=== PATIENT | male | born 1985 | race Caucasian/White ===

== ENCOUNTER 2017-02-18 23:37 | Inpatient (IN) | payer SELFPAY ==
[~2017-02-18] VITALS: Ht 185.4 cm; Wt 60.0 kg
[2017-02-19] VITALS (13 sets, daily range): BP systolic 107–155; BP diastolic 62–82; PULSE 76–100; RESP 16–27; TEMP 98.1–99.2; O2SAT 92–98
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
[2017-02-19] MEDS ORDERED: MORPHINE SULFATE 4 MG/ML INJ IV PUSH PRN (00:30)
[2017-02-19] MEDS ORDERED: SODIUM CHLORIDE 0.9% FLUSH 10 ML FLUSH IVF PRN (00:30)
[2017-02-19] MEDS ORDERED: ACETAMINOPHEN 650 MG SUPP RECTAL PRN (00:30)
[2017-02-19] MEDS: ONDANSETRON HCL 4 MG/2 ML VIAL IV PRN ×3 (01:00→13:30)
[2017-02-19] MEDS: NS + KCL 20 MEQ INJ 1,000 ML IV SCH ×3 (01:00→20:35)
[2017-02-19] MEDS: KETOROLAC TROMETHAMINE 30 MG/ML (IVP) VIAL IV PUSH SCH ×2 (03:37→08:32)
[2017-02-19] MEDS: HYDROmorphone HCL PF 1 MG/ML VIAL IV PRN ×5 (03:38→21:43)
[2017-02-19 04:43] LABS: MRSA PCR NEGATIVE (NEGATIVE); STAPH AUREUS PCR NEGATIVE (NEGATIVE)
[2017-02-19] MEDS ORDERED: MAGNESIUM OXIDE 400 MG TAB PO PRN (07:15)
[2017-02-19] MEDS ORDERED: POTASSIUM PHOSPHATE MONOBASIC 500 MG TAB PO PRN (07:15)
[2017-02-19] MEDS ORDERED: MAGNESIUM SULFATE INJ 4 GM in SODIUM CHLORIDE 0.9% INJ 92 ML IV PRN (07:15)
[2017-02-19] MEDS ORDERED: POTASSIUM CHLOR 20 MEQ PREMIX 100 ML IV PRN ×2 (07:15)
[2017-02-19] MEDS ORDERED: RESP: ALBUTEROL 2.5 MG/IPRATROPIUM 0.5 MG NEB (PRN) INH (07:15)
[2017-02-19] MEDS ORDERED: MAGNESIUM SULFATE INJ 2 GM in SODIUM CHLORIDE 0.9% INJ 96 ML IV PRN (07:15)
[2017-02-19] MEDS ORDERED: MISCELLANEOUS NURSING INFORMATION XX SCH (07:15)
[2017-02-19] MEDS ORDERED: POTASSIUM CHLORIDE 25 MEQ EFFERVESCENT TAB PO PRN (07:15)
[2017-02-19] MEDS ORDERED: CHLORHEXIDINE GLUCONATE 2 % 1 PACK (2 CLOTHS) TOP PRN (07:15)
[2017-02-19] MEDS ORDERED: ENALAPRILAT 1.25 MG/ML VIAL IV PRN (07:15)
[2017-02-19] MEDS ORDERED: POTASSIUM CHLOR 40 MEQ PREMIX 100 ML IV PRN ×2 (07:15)
[2017-02-19] MEDS ORDERED: POTASSIUM PHOSPHATE INJ 30 MMOL in SODIUM CHLOR 0.9% 250 ML INJ 250 ML IV PRN (07:15)
[2017-02-19] MEDS ORDERED: SODIUM PHOSPHATE INJ 30 MMOL in SODIUM CHLOR 0.9% 250 ML INJ 240 ML IV PRN (07:15)
[2017-02-19] MEDS ORDERED: SODIUM CHLORIDE 0.9% FLUSH 10 ML FLUSH IV FLUSH PRN (07:15)
[2017-02-19] MEDS ORDERED: POTASSIUM PHOSPHATE MONOBASIC 500 MG TAB PO/TUBE PRN (07:15)
[2017-02-19] MEDS ORDERED: SODIUM CHLOR 0.9% 1000 ML INJ 1,000 ML IV SCH (08:00)
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
[2017-02-19] MEDS: DOCUSATE SODIUM 100 MG CAP PO SCH ×2 (08:32→20:36)
[2017-02-19] MEDS: PANTOPRAZOLE SODIUM 40 MG VIAL IVP SCH (08:32)
[2017-02-19] MEDS: SODIUM CHLORIDE 0.9% FLUSH 10 ML FLUSH IV FLUSH SCH ×2 (08:33→20:35)
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
[2017-02-19 11:33] LABS: AUTOMATED NEUTROPHIL # 11.1 TH/MM3 (1.8-7.7); BASOPHIL % 0.2 % (0.0-2.0); HEMATOCRIT 43.4 % (39.0-51.0); HEMO FLAGS DIFF FINAL; LYMPH % 8.6 % (9.0-44.0); LYMPHOCYTE # 1.1 TH/MM3 (1.0-4.8); MEAN CELL VOLUME 91.4 FL (80.0-100.0); MEAN CORPUSCULAR HEMOGLOBIN 32.6 PG (27.0-34.0); MEAN CORPUSCULAR HGB CONC 35.7 % (32.0-36.0); MONO % 6.4 % (0.0-8.0); NEUT % 84.8 % (16.0-70.0); PLATELET COUNT 343 TH/MM3 (150-450); RED BLOOD COUNT 4.74 MIL/MM3 (4.50-5.90); RED CELL DISTRIBUTION WIDTH 14.3 % (11.6-17.2); WHITE BLOOD COUNT 13.1 TH/MM3 (4.0-11.0)
[2017-02-19] MEDS: RESP: ALBUTEROL 2.5 MG/IPRATROPIUM 0.5 MG NEB (SCH) INH ×3 (11:47→21:16)
[2017-02-19] MEDS ORDERED: PROPOFOL 200 MG/20 ML AMP IV ONE (12:00)
[2017-02-19 12:14] LABS: ANION GAP 10 MEQ/L (5-15); AST (GOT) 31 U/L (15-37); BICARBONATE 23.3 MEQ/L (21.0-32.0); BLOOD UREA NITROGEN 11 MG/DL (7-18); CHLORIDE 107 MEQ/L (98-107); GLOMERULAR FILTRATION RATE 95 ML/MIN (>89); POTASSIUM 4.2 MEQ/L (3.5-5.1); SODIUM (NA) 140 MEQ/L (136-145)
[2017-02-19 12:17] LABS: ALKALINE PHOSPHATASE 87 U/L (45-117); ALT (GPT) 28 U/L (12-78); TOTAL BILIRUBIN ADULT 0.9 MG/DL (0.2-1.0)
--- NOTE | 2017-02-19 12:38 | RADRPT ---
EXAM DATE/TIME: 02/19/2017 11:11 [facility] COMPARISON: No previous studies available for comparison. INDICATIONS : Trauma, neck pain. RADIATION DOSE: 24 CTDIvol (mGy) MEDICAL HISTORY : None SURGICAL HISTORY : None. ENCOUNTER: Initial ACUITY: 1 day PAIN SCALE: 3/10 LOCATION: neck TECHNIQUE: Volumetric scanning of the cervical spine was performed. Multiplanar reconstructions in the sagittal, coronal and oblique axial planes were performed. Using automated exposure control and adjustment o f the mA and/or kV according to patient size, radiation dose was kept as low as reasonably achievable to obtain optimal diagnostic quality images. FINDINGS: VERTEBRAE: There is fracturing of the C1 ring. There is fracturing of the right lateral aspect of the anterior a rch with approximately 5 mm of separation between the fracture fragments. There are fairly symmetric nondisplaced fractures at the right and left posterior arch regions. The C1-C2 articulation does appe ar aligned. There is also a nondisplaced fracture involving the superior facet of C7 on the left. ALIGNMENT: No evidence of subluxation. C2-C3: The bony spinal canal is normal in size. No evidence of disc bulge or herniation. The neural forami na are bilaterally patent. C3-C4: The bony spinal canal is normal in size. No evidence of disc bulge or herniation. The neural forami na are bilaterally patent. C4-C5: The bony spinal canal is normal in size. No evidence of disc bulge or herniation. The neural forami na are bilaterally patent. C5-C6: The bony spinal canal is normal in size. No evidence of disc bulge or herniation. The neural forami na are bilaterally patent. C6-C7: The bony spinal canal is normal in size. No evidence of disc bulge or herniation. The neural forami na are bilaterally patent. C7-T1: The bony spinal canal is normal in size. No evidence of disc bulge or herniation. The neural forami na are bilaterally patent. CONCLUSION: 1. C1 fracture. 2. Fracturing of the superior facet on the left at C7 without displacement or malalignment of the fac et joint. Amrit Jeong MD on February 19, 2017 at 12:26 Board Certified Radiologist. This report was verified electronically.
--- NOTE | 2017-02-19 15:15 | OTSOAPIP ---
TIME SESSION COMPLETED: AM TREATMENT TIME: 0 MINS. CHART REVIEWED. RECEIVED ORDERS FOR OT CONSULT. PT IS OFF FLOOR FOR ADDITIONAL CERVICAL SPINE TESTING AND PENDING RESULTS. WILL FOLLOW NEXT DAY. Therapist: ANNA ARORYO OT/Amy Signature on file
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
[2017-02-19] MEDS ORDERED: LIDOCAINE 1%/EPINEPHrine 1:100,000 SOLN 50 ML VIAL ONE (17:40)
[2017-02-19] MEDS ORDERED: MIDAZOLAM HCL 2 MG/2 ML VIAL ONE (19:15)
--- NOTE | 2017-02-19 20:08 | RADRPT ---
EXAM DATE/TIME: 02/19/2017 18:51 [facility] COMPARISON: CT CERVICAL SPINE W/O CONTRAST, February 19, 2017, 11:11. INDICATIONS : Evalute cervical stability. Halo placement. MEDICAL HISTORY : None. SURGICAL HISTORY : None. ENCOUNTER: Initial ACUITY: 1 day PAIN SCORE: Non-responsive. LOCATION: Neck. FINDINGS: A single magnified C-arm spot view is a lateral projection of the cervical spine. No fracture appreci ated on this limited single image. Alignment is preserved. CONCLUSION: Limited image as detailed above. Chad Chisholm Jr., MD on February 19, 2017 at 20:06 Board Certified Radiologist. This report was verified electronically.
[2017-02-19] MEDS: MAGNESIUM HYDROXIDE SUSP 30 ML CUP PO SCH (20:36)
--- NOTE | 2017-02-19 20:54 | PD.OP ---
Operative Report Date of Surgery: February 19, 2017 Preoperative Diagnosis: C1 unstable fractures Postoperative Diagnosis: C1 unstable fractures Procedure: Placement of halo brace Anesthesia: general Surgeon: Robert Guillermo Trial Judge(s): JESSICA Operation and Findings: INDICATIONS The patient is a 31-year-old male who presented with severe neck pain. he had unstable fractures of C1. The fractures were unstable. Placement of halo brace was indicated. I have discussed the [id number]-wf-gjht details of the procedure, its indications, alternatives, risks and potential complications with the patient including but not limited to the risk of infection, hemorrhage, paralysis, stroke, heart attack, even vegetative state or even the possibility of . The patient fully understands. All his questions were answered. No guarantees were given. he voiced requesting the procedure and provided informed consent. he has been offered the alternative of not having aggressive management. DETAILS OF THE SURGICAL PROCEDURE The entire procedure was performed with the patient wearing ahard cervical collar and the cervical spine in a neutral position. Whenever movement was indicated, the patient was carefully log-rolled awake. Initially the patient was log-rolled and a vest was placed on the patient's thorax. The vest was tightly secured. Then keeping the head in a neutral position, the bilateral parieto-occipital area was shaved and prepped with Betadine. The bilateral frontal area was prepped with Betadine. 1% lidocaine was used to numb the skull. A halo was brought to the patient's head and carefully secured in a symmetrical position using the torque wrench calibrated at the pressure of 8 pounds per square foot. Once all pins were secured to the patient's skull, four posts were used to connect the halo to the vest and all the connections secured with a torque wrench. The patient's cervical spine was kept in a neutral position. X-ray of the cervical spine was ordered at the end of the procedure. The patient tolerated the procedure well. There were no intraoperative complications. Robert Guillermo MD February 19, 2017 20:54
[2017-02-19] MEDS: oxyCODONE/ACETAMINOPHEN 5 MG/325 MG TAB PO PRN (22:39)
[2017-02-20] VITALS (14 sets, daily range): BP systolic 110–134; BP diastolic 63–80; PULSE 55–85; RESP 16–22; TEMP 98.3–98.9; O2SAT 97–100
[2017-02-20] MEDS: CHLORHEXIDINE GLUCONATE 2 % 1 PACK (2 CLOTHS) TOP SCH (02:52)
[2017-02-20] MEDS: HYDROmorphone HCL PF 1 MG/ML VIAL IV PRN ×4 (02:52→21:05)
[2017-02-20] MEDS: RESP: ALBUTEROL 2.5 MG/IPRATROPIUM 0.5 MG NEB (SCH) INH ×3 (03:52→20:20)
--- NOTE | 2017-02-20 04:46 | RADRPT ---
EXAM DATE/TIME: 02/20/2017 02:38 [facility] COMPARISON: No previous studies available for comparison. INDICATIONS : Short of breath. MEDICAL HISTORY : None. SURGICAL HISTORY : Halo C1 fracture. ENCOUNTER: Initial ACUITY: 1 day PAIN SCORE: 0/10 LOCATION: Bilateral chest FINDINGS: Halo-vest apparatus is noted. The lungs are focally clear. Cardiac contours are satisfactory. CONCLUSION: No acute disease Amrit Mcnulty MD on February 20, 2017 at 4:44 Board Certified Radiologist. This report was verified electronically.
[2017-02-20 05:00] LABS: AUTOMATED NEUTROPHIL # 4.4 TH/MM3 (1.8-7.7); BASOPHIL % 0.3 % (0.0-2.0); EOSINOPHIL # 0.2 TH/MM3 (0-0.4); EOSINOPHIL % 2.4 % (0.0-4.0); HEMO FLAGS DIFF FINAL; LYMPH % 22.6 % (9.0-44.0); LYMPHOCYTE # 1.5 TH/MM3 (1.0-4.8); MEAN CELL VOLUME 91.9 FL (80.0-100.0); MEAN CORPUSCULAR HGB CONC 34.8 % (32.0-36.0); MONO % 8.9 % (0.0-8.0); NEUT % 65.8 % (16.0-70.0); PLATELET COUNT 223 TH/MM3 (150-450); RED BLOOD COUNT 3.92 MIL/MM3 (4.50-5.90); RED CELL DISTRIBUTION WIDTH 14.3 % (11.6-17.2); WHITE BLOOD COUNT 6.6 TH/MM3 (4.0-11.0)
[2017-02-20] MEDS: NS + KCL 20 MEQ INJ 1,000 ML IV SCH ×2 (05:05→16:30)
[2017-02-20] MEDS: SODIUM CHLORIDE 0.9% FLUSH 10 ML FLUSH IV FLUSH SCH ×2 (09:00→19:13)
[2017-02-20] MEDS: ONDANSETRON HCL 4 MG/2 ML VIAL IV PRN (09:01)
[2017-02-20] MEDS: PANTOPRAZOLE SODIUM 40 MG VIAL IVP SCH (09:03)
[2017-02-20] MEDS: DOCUSATE SODIUM 100 MG CAP PO SCH ×2 (09:04→19:13)
[2017-02-20 09:29] LABS: ANION GAP 5 MEQ/L (5-15); AST (GOT) 36 U/L (15-37); BLOOD UREA NITROGEN 8 MG/DL (7-18); CHLORIDE 103 MEQ/L (98-107); GLOMERULAR FILTRATION RATE 115 ML/MIN (>89); MAGNESIUM 1.9 MG/DL (1.5-2.5); POTASSIUM 3.3 MEQ/L (3.5-5.1); SODIUM (NA) 138 MEQ/L (136-145)
[2017-02-20 09:30] LABS: ALT (GPT) 22 U/L (12-78)
[2017-02-20 09:36] LABS: ALKALINE PHOSPHATASE 65 U/L (45-117); TOTAL BILIRUBIN ADULT 1.1 MG/DL (0.2-1.0)
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
[2017-02-20] MEDS: oxyCODONE/ACETAMINOPHEN 5 MG/325 MG TAB PO PRN ×2 (13:51→19:13)
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
--- NOTE | 2017-02-20 17:36 | RADRPT ---
EXAM DATE/TIME: 02/20/2017 16:28 [facility] COMPARISON: CT CERVICAL SPINE W/O CONTRAST, February 19, 2017, 11:11. SPINE CERVICAL LATERAL ONLY, February 19, 2017, 18:5 1. INDICATIONS : Evaluate C-1 Evert fracture. MEDICAL HISTORY : None. SURGICAL HISTORY : None. ENCOUNTER: Subsequent ACUITY: 2 days PAIN SCORE: 7/10 LOCATION: C-1 FINDINGS: Single lateral view cervical spine. Posterior C1 fracture again identified. Alignment near-anatomic. CONCLUSION: C1 fracture. Masood Ruiz MD on February 20, 2017 at 17:34 Board Certified Radiologist. This report was verified electronically.
[2017-02-20] MEDS: ACETAMINOPHEN 325 MG TAB PO PRN (18:40)
[2017-02-20] MEDS: MAGNESIUM HYDROXIDE SUSP 30 ML CUP PO SCH (19:13)
[2017-02-21] VITALS (10 sets, daily range): BP systolic 115–137; BP diastolic 76–91; PULSE 54–79; RESP 18–25; TEMP 98.3–98.7; O2SAT 94–100
[2017-02-21] MEDS: ACETAMINOPHEN 325 MG TAB PO PRN ×3 (01:30→15:29)
[2017-02-21] MEDS: NS + KCL 20 MEQ INJ 1,000 ML IV SCH ×2 (01:30→13:08)
[2017-02-21] MEDS: RESP: ALBUTEROL 2.5 MG/IPRATROPIUM 0.5 MG NEB (SCH) INH ×3 (03:16→16:00)
[2017-02-21] MEDS: CHLORHEXIDINE GLUCONATE 2 % 1 PACK (2 CLOTHS) TOP SCH (04:00)
[2017-02-21] MEDS: DOCUSATE SODIUM 50 MG/SENNA 8.6 MG TAB PO SCH ×2 (08:30→22:07)
[2017-02-21] MEDS: LACTULOSE SYRUP 20 GM/30 ML CUP PO SCH (08:31)
[2017-02-21] MEDS: FAMOTIDINE 20 MG TAB PO SCH ×2 (08:31→22:07)
[2017-02-21] MEDS: oxyCODONE/ACETAMINOPHEN 5 MG/325 MG TAB PO PRN ×4 (09:18→22:06)
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
[2017-02-21] MEDS: SODIUM CHLORIDE 0.9% FLUSH 10 ML FLUSH IV FLUSH SCH ×2 (13:09→22:07)
[2017-02-21 14:09] LABS: AUTOMATED NEUTROPHIL # 4.9 TH/MM3 (1.8-7.7); BASOPHIL % 0.2 % (0.0-2.0); EOSINOPHIL # 0.2 TH/MM3 (0-0.4); HEMATOCRIT 39.8 % (39.0-51.0); HEMO FLAGS DIFF FINAL; LYMPH % 20.1 % (9.0-44.0); LYMPHOCYTE # 1.4 TH/MM3 (1.0-4.8); MEAN CELL VOLUME 93.3 FL (80.0-100.0); MEAN CORPUSCULAR HEMOGLOBIN 31.1 PG (27.0-34.0); MEAN CORPUSCULAR HGB CONC 33.4 % (32.0-36.0); MONO % 7.2 % (0.0-8.0); NEUT % 69.5 % (16.0-70.0); PLATELET COUNT 195 TH/MM3 (150-450); RED BLOOD COUNT 4.26 MIL/MM3 (4.50-5.90)
[2017-02-21 14:33] LABS: ANION GAP 8 MEQ/L (5-15); AST (GOT) 31 U/L (15-37); BLOOD UREA NITROGEN 4 MG/DL (7-18); CHLORIDE 100 MEQ/L (98-107); GLOMERULAR FILTRATION RATE 128 ML/MIN (>89); SODIUM (NA) 134 MEQ/L (136-145)
[2017-02-21 14:34] LABS: ALT (GPT) 22 U/L (12-78)
[2017-02-21 14:37] LABS: ALKALINE PHOSPHATASE 72 U/L (45-117); TOTAL BILIRUBIN ADULT 0.9 MG/DL (0.2-1.0)
--- NOTE | 2017-02-21 14:46 | RADRPT ---
EXAM DATE/TIME: 02/21/2017 14:07 [facility] COMPARISON: CT CERVICAL SPINE W/O CONTRAST, February 19, 2017, 11:11. INDICATIONS : Fracture C1 MEDICAL HISTORY : Cervical fracture SURGICAL HISTORY : Halo ENCOUNTER: Subsequent ACUITY: 2 days PAIN SCORE: 5/10 LOCATION: Bilateral cervical spine FINDINGS: 3 views cervical spine. C1 fracture again noted. Alignment within normal limits. CONCLUSION: Posterior C1 fracture noted. Masood Ruiz MD on February 21, 2017 at 14:41 Board Certified Radiologist. This report was verified electronically.
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
[2017-02-21] MEDS: HYDROmorphone HCL PF 1 MG/ML VIAL IV PRN (23:51)
[2017-02-22] VITALS (7 sets, daily range): BP systolic 106–137; BP diastolic 70–91; PULSE 69–79; RESP 18–20; TEMP 97.1–99.6; O2SAT 94–99
[2017-02-22] MEDS: oxyCODONE/ACETAMINOPHEN 5 MG/325 MG TAB PO PRN ×4 (03:23→20:46)
[2017-02-22] MEDS: LACTULOSE SYRUP 20 GM/30 ML CUP PO SCH (08:37)
[2017-02-22] MEDS: FAMOTIDINE 20 MG TAB PO SCH ×2 (08:37→20:46)
[2017-02-22] MEDS: DOCUSATE SODIUM 50 MG/SENNA 8.6 MG TAB PO SCH ×2 (08:37→20:46)
[2017-02-22] MEDS: SODIUM CHLORIDE 0.9% FLUSH 10 ML FLUSH IV FLUSH SCH ×2 (08:46→20:46)
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
[2017-02-22] MEDS: HYDROmorphone HCL PF 1 MG/ML VIAL IV PRN ×3 (12:42→22:52)
[2017-02-22] MEDS: CYCLOBENZAPRINE HCL 10 MG TAB PO SCH ×2 (14:41→20:46)
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
[2017-02-22] MEDS ORDERED: LACTULOSE SYRUP 20 GM/30 ML CUP PO ONE (15:00)
[2017-02-22] MEDS: BACITRACIN TOP OINT 15 GM TUBE TOPICAL SCH (20:45)
[2017-02-23 00:45] VITALS: BP 125/85; PULSE 68; RESP 20; TEMP 99; O2SAT 98
[2017-02-23] MEDS: oxyCODONE/ACETAMINOPHEN 5 MG/325 MG TAB PO PRN ×3 (02:04→11:49)
[2017-02-23 05:15] VITALS: BP 135/97; PULSE 67; RESP 18; TEMP 98; O2SAT 98
[2017-02-23] MEDS: CYCLOBENZAPRINE HCL 10 MG TAB PO SCH ×2 (05:48→14:05)
[2017-02-23 08:00] VITALS: BP 128/77; PULSE 77; RESP 18; TEMP 97.2; O2SAT 97
[2017-02-23] MEDS: LACTULOSE SYRUP 20 GM/30 ML CUP PO SCH (09:00)
[2017-02-23] MEDS: DOCUSATE SODIUM 50 MG/SENNA 8.6 MG TAB PO SCH (09:00)
[2017-02-23] MEDS: SODIUM CHLORIDE 0.9% FLUSH 10 ML FLUSH IV FLUSH SCH (09:00)
[2017-02-23] MEDS: FAMOTIDINE 20 MG TAB PO SCH (09:05)
[2017-02-23] MEDS: BACITRACIN TOP OINT 15 GM TUBE TOPICAL SCH (09:06)
[2017-02-23 12:59] VITALS: BP 117/58; PULSE 86; RESP 19; TEMP 97.3; O2SAT 98
[2017-02-23] MEDS ORDERED: PERC5TAB12 PO (13:18)
[2017-02-23] MEDS ORDERED: CYCL1TAB29 PO (13:19)
[2017-02-23] MEDS: ACETAMINOPHEN 325 MG TAB PO PRN (14:07)
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
[2017-03-19] MEDS ORDERED: PERC5TAB12 PO (15:34)
== END 2017-02-23 16:06 | disposition home or self-care (01) | DRG 552 ==
LOC: NEPC 23:37 → NEDA 02-19 00:06 → N03A 02-19 02:42 → N05B 02-21 15:48
PROVIDERS: ADMIT Surgery; ATTEND Surgery
PROC: 2W60X0Z Traction of Head using Traction Apparatus (ICD-10-PCS; principal; 2017-02-19 18:20)
DX: S12.030A Displaced posterior arch fracture of first cervical vertebra, initial encounter for closed fracture (principal); S12.600A Unspecified displaced fracture of seventh cervical vertebra, initial encounter for closed fracture; V43.52XA Car driver injured in collision with other type car in traffic accident, initial encounter; Y92.9 Unspecified place or not applicable
CPT/HCPCS: 71010; 72020; 72040; 72125; 76000; 80053; 83735; 84100; 85025; 87640; 87641; 94150; 94640; 94664; 99285; C9113; J1170; J1885; J2250; J2405; J3010; J3480; L0150; L0172; L0810

== ENCOUNTER 2017-04-14 07:59 | Inpatient (IN) | payer OTHER ==
[~2017-04-14] VITALS: Ht 188 cm; Wt 71.1 kg
[~2017-04-14 07:59] MED LIST: CYCL1TAB29 PO; PERC5TAB12 PO
[2017-04-14 08:06] VITALS: BP 155/88; PULSE 100; RESP 24; TEMP 98.2; O2SAT 97
[2017-04-14] MEDS ORDERED: TYLETAB34 PO (08:14)
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
[2017-04-14] MEDS ORDERED: ACETAMINOPHEN/CODEINE 300 MG/30 MG TAB PO ONE (10:15)
[2017-04-14] MEDS ORDERED: ACET-534 (10:16)
[2017-04-14] MEDS ORDERED: ESCI20TA PO (10:16)
[2017-04-14] MEDS ORDERED: ALBU0.08 NEB (10:16)
[2017-04-14] MEDS ORDERED: BACL10TA PO (10:16)
[2017-04-14] MEDS ORDERED: DOCU100C PO (10:16)
[2017-04-14] MEDS ORDERED: DIAZ5TAB PO (10:16)
[2017-04-14] MEDS ORDERED: GABA300C5 PO (10:16)
[2017-04-14] MEDS ORDERED: MIRT1TAB PO (10:16)
[2017-04-14] MEDS ORDERED: BUSP10TA PO (10:16)
[2017-04-14] MEDS ORDERED: IBUP-232 PO (10:16)
[2017-04-14] MEDS ORDERED: SODIUM CHLORIDE 0.9% FLUSH 10 ML FLUSH IV FLUSH PRN (11:15)
[2017-04-14] MEDS ORDERED: NALOXONE HCL 0.4 MG/ML AMP IV PRN (11:15)
[2017-04-14 11:48] LABS: AUTOMATED NEUTROPHIL # 9.3 TH/MM3 (1.8-7.7); BASOPHIL # 0.1 TH/MM3 (0-0.2); BASOPHIL % 0.7 % (0.0-2.0); EOSINOPHIL # 0.2 TH/MM3 (0-0.4); EOSINOPHIL % 1.6 % (0.0-4.0); HEMATOCRIT 40.2 % (39.0-51.0); HEMO FLAGS DIFF FINAL; LYMPH % 9.8 % (9.0-44.0); LYMPHOCYTE # 1.1 TH/MM3 (1.0-4.8); MEAN CELL VOLUME 90.2 FL (80.0-100.0); MEAN CORPUSCULAR HEMOGLOBIN 31.7 PG (27.0-34.0); MEAN CORPUSCULAR HGB CONC 35.1 % (32.0-36.0); MONO % 5.3 % (0.0-8.0); NEUT % 82.6 % (16.0-70.0); PLATELET COUNT 341 TH/MM3 (150-450); RED BLOOD COUNT 4.45 MIL/MM3 (4.50-5.90); RED CELL DISTRIBUTION WIDTH 13.6 % (11.6-17.2); WHITE BLOOD COUNT 11.2 TH/MM3 (4.0-11.0)
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
[2017-04-14 11:56] LABS: APTT (PATIENT) 25.7 SEC (24.3-30.1); BICARBONATE 26.4 MEQ/L (21.0-32.0); POTASSIUM 3.9 MEQ/L (3.5-5.1); PROTHROMBIN TIME - PATIENT 10.6 SEC (9.8-11.6)
[2017-04-14] MEDS ORDERED: oxyCODONE/ACETAMINOPHEN 5 MG/325 MG TAB PO PRN (12:00)
[2017-04-14] MEDS ORDERED: ACETAMINOPHEN 325 MG TAB PO PRN (12:00)
[2017-04-14 12:50] VITALS: BP 117/81; PULSE 82; RESP 21; O2SAT 98
[2017-04-14] MEDS ORDERED: MORPHINE SULFATE 4 MG/ML INJ SQ ONE (15:15)
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
[2017-04-14 16:00] VITALS: BP 139/85; PULSE 88; RESP 20; TEMP 98.1; O2SAT 95
[2017-04-14] MEDS ORDERED: RESP: ALBUTEROL 2.5 MG/IPRATROPIUM 0.5 MG NEB (PRN) NEB (16:00)
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
[2017-04-14] MEDS ORDERED: MORPHINE SULFATE 4 MG/ML INJ IV ONE (16:30)
[2017-04-14] MEDS: SODIUM CHLOR 0.9% 1000 ML INJ 1,000 ML IV SCH (18:12)
[2017-04-14] MEDS: BACITRACIN TOP OINT 15 GM TUBE TOPICAL SCH ×2 (18:14→22:16)
[2017-04-14 19:10] VITALS: BP 120/74; PULSE 73; RESP 18; TEMP 98; O2SAT 95
[2017-04-14] MEDS: CHLORHEXIDINE GLUCONATE 4% SOLN 120 ML BTL TOP SCH (21:00)
[2017-04-14] MEDS: SODIUM CHLORIDE 0.9% FLUSH 10 ML FLUSH IV FLUSH SCH (21:00)
[2017-04-14] MEDS: FAMOTIDINE 20 MG TAB PO SCH (22:15)
[2017-04-15 01:11] VITALS: BP 130/77; PULSE 66; RESP 18; TEMP 99.3; O2SAT 97
[2017-04-15] MEDS: SODIUM CHLOR 0.9% 1000 ML INJ 1,000 ML IV SCH ×3 (03:08→22:08)
[2017-04-15 05:11] VITALS: BP 118/69; PULSE 72; RESP 18; TEMP 98.6; O2SAT 96
[2017-04-15] MEDS: BACITRACIN TOP OINT 15 GM TUBE TOPICAL SCH ×3 (05:14→22:00)
[2017-04-15 07:27] VITALS: BP 116/73; PULSE 99; RESP 18; TEMP 98.4; O2SAT 97
[2017-04-15 07:37] LABS: AUTOMATED NEUTROPHIL # 4.7 TH/MM3 (1.8-7.7); BASOPHIL % 0.5 % (0.0-2.0); EOSINOPHIL # 0.6 TH/MM3 (0-0.4); EOSINOPHIL % 7.8 % (0.0-4.0); HEMO FLAGS DIFF FINAL; LYMPH % 21.5 % (9.0-44.0); LYMPHOCYTE # 1.6 TH/MM3 (1.0-4.8); MEAN CELL VOLUME 90.7 FL (80.0-100.0); MEAN CORPUSCULAR HEMOGLOBIN 31.3 PG (27.0-34.0); MEAN CORPUSCULAR HGB CONC 34.6 % (32.0-36.0); MONO % 6.9 % (0.0-8.0); NEUT % 63.3 % (16.0-70.0); PLATELET COUNT 266 TH/MM3 (150-450); RED CELL DISTRIBUTION WIDTH 13.3 % (11.6-17.2); WHITE BLOOD COUNT 7.5 TH/MM3 (4.0-11.0)
[2017-04-15] MEDS ORDERED: VANCOMYCIN INJ 1,000 MG in SODIUM CHLOR 0.9% 250 ML INJ 250 ML IV PRN (08:00)
[2017-04-15] MEDS ORDERED: ceFAZolin 2 GM PREMIX 50 ML IV PRN (08:00)
[2017-04-15] MEDS: SODIUM CHLORIDE 0.9% FLUSH 10 ML FLUSH IV FLUSH SCH (08:02)
[2017-04-15] MEDS: FAMOTIDINE 20 MG TAB PO SCH ×2 (08:02→20:49)
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
[2017-04-15 11:26] VITALS: BP 121/74; PULSE 86; RESP 18; TEMP 98; O2SAT 97
[2017-04-15] MEDS ORDERED: HYDROmorphone HCL PF 1 MG/ML VIAL IV PUSH PRN (12:00)
[2017-04-15] MEDS ORDERED: PROPOFOL 200 MG/20 ML AMP IV ONE (12:11)
[2017-04-15] MEDS ORDERED: NEOSTIGMINE 3 MG/3 ML SYR IV ONE (12:11)
[2017-04-15] MEDS ORDERED: LACTATED RINGER'S 1000 ML INJ 1,000 ML IV ONE (12:12)
[2017-04-15] MEDS ORDERED: ONDANSETRON HCL 4 MG/2 ML VIAL IV PUSH ONE (12:12)
[2017-04-15] MEDS ORDERED: THROMBIN (TOPICAL) 5,000 UNIT VIAL ONE (16:01)
[2017-04-15] MEDS ORDERED: GENTAMICIN SULFATE 80 MG/2 ML VIAL ONE (16:01)
[2017-04-15] MEDS ORDERED: GELFOAM SIZE 100 ONE (16:01)
[2017-04-15] MEDS ORDERED: ACETAMINOPHEN 1000 MG/100 ML VIAL IV ONE (16:03)
[2017-04-15] MEDS ORDERED: fentaNYL CITRATE 250 MCG/5 ML AMP ONE (16:03)
[2017-04-15] MEDS ORDERED: LIDOCAINE 0.5%/EPINEPHrine 1:200,000 SOLN 50 ML VIAL ONE (16:06)
[2017-04-15] MEDS ORDERED: levETIRAcetam 500 MG/5 ML VIAL IV ONE (17:15)
[2017-04-15] MEDS ORDERED: ACETAMINOPHEN/HYDROcodone 325 MG/10 MG TAB PO PRN (17:15)
[2017-04-15] MEDS ORDERED: POTASSIUM CHLOR 20 MEQ PREMIX 100 ML IV PRN (17:15)
[2017-04-15] MEDS ORDERED: MAGNESIUM SULFATE INJ 4 GM in SODIUM CHLORIDE 0.9% INJ 100 ML IV PRN (17:15)
[2017-04-15] MEDS ORDERED: ONDANSETRON HCL 4 MG/2 ML VIAL IV PRN (17:15)
[2017-04-15] MEDS ORDERED: BISACODYL 10 MG SUPP RECTAL PRN (17:15)
[2017-04-15] MEDS ORDERED: ACETAMINOPHEN 325 MG TAB PO PRN (17:15)
[2017-04-15] MEDS ORDERED: MORPHINE SULFATE 4 MG/ML INJ IV PUSH PRN (17:15)
[2017-04-15] MEDS ORDERED: SODIUM CHLORIDE 0.9% FLUSH 5 ML FLUSH IVF PRN (17:15)
[2017-04-15] MEDS ORDERED: CALCIUM GLUCONATE 10% 1 GM/10 ML VIAL IV PRN (17:15)
[2017-04-15] MEDS ORDERED: MICROFIBRILLAR COLLAGEN HEMOSTAT 70 X 35 MM BANDAGE TOPICAL ONE (17:24)
[2017-04-15] MEDS ORDERED: GELFOAM SIZE 100 TOP ONE (17:24)
[2017-04-15] MEDS ORDERED: THROMBIN (TOPICAL) 5,000 UNIT VIAL TOP ONE (17:24)
[2017-04-15] MEDS ORDERED: GENTAMICIN SULFATE 80 MG/2 ML VIAL IRRIGATION ONE (17:24)
--- NOTE | 2017-04-15 17:51 | PD.OP ---
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 Bilateral TRUNG hose and sequential compression devices were placed and kept throughout the procedure. The patient was positioned supine on a 3080 table over a soft mattress. The head was placed on a gel doughnut. All pressure points were carefully padded with egg crate mattress. The eyes were tapped shut after ointment was applied by the anesthesiologist to prevent corneal abrasion. A Jesusita hugger was placed over the exposed lower body to maintain control of the core body temperature. The left temporal area was shaved, prepped and draped in the usual sterile fashion. A standard horseshoe inverted incision was outlined on the scalp and infiltrated with 1% lidocaine with epinephrine. The skin incision was made with a #10 blade down to the temporalis fascia in the temporal region. Mila clips were applied to the scalp. Using a Bovie, the temporalis fascia and muscle were incised and a subperiosteal dissection was performed reflecting the scalp flap anteriorly. The scalp was covered with a moist sponge and held in position using fish hooks. The TPS drill was brought to the field and a bur hole was made in the temporal region using the AM8. Then, using the footplate attachment, a small temporal craniotomy flap was elevated. Upon elevation of the craniotomy flap, a dural laceration was seen. The dura was opened and the subdural space thoroughly irrigated Then the incision was irrigated with saline solution. The dural edges was closed with 4-0 Neurolon. The craniotomy flap was then repositioned and secured in place using plates and screws. A 7 millimeter Derek-Green drain was then left in the subgaleal space and externalized through a separate stab incision. The incision was then closed in layers. 0 Vicryl in interrupted sutures were used to close the temporalis fascia. The galea was closed with interrupted 3- 0 Vicryl. Robert were applied to the skin. The drain was secured with a 3-0 nylon. At the end of the procedure, the sponge, needle and instrument counts were all correct. Estimated blood loss was minimal. No blood transfusion was given. No intraoperative complications occurred. The patient received prophylactic antibiotics. The patient was then transferred to the recovery room in stable condition. Robert Guillermo MD Apr 15, 2017 17:51
[2017-04-15] MEDS ORDERED: *morphine SULFATE 8 MG/ML PERIprocedure ONLY ONE (18:27)
[2017-04-15] MEDS ORDERED: *ONDANSETRON 4 MG VIAL PERIprocedural Use ONLY ONE (18:28)
[2017-04-15] MEDS: NS + KCL 20 MEQ INJ 1,000 ML IV SCH (18:56)
[2017-04-15] MEDS ORDERED: CALCIUM GLUCONATE INJ 1 GM in SODIUM CHLORIDE 0.9% INJ 100 ML IV PRN (19:00)
[2017-04-15] MEDS ORDERED: DIMETHICONE/OXYBENZONE/PADMIATE LIP BALM 4.25 GM TOPICAL ONE (19:35)
[2017-04-15] MEDS ORDERED: DO NOT ADM ANY ANTICOAGULANT DRUGS PRN (20:30)
[2017-04-15] MEDS: CHLORHEXIDINE GLUCONATE 4% SOLN 120 ML BTL TOP SCH (20:34)
[2017-04-15] MEDS: DOCUSATE SODIUM 100 MG CAP PO SCH (20:49)
[2017-04-15] MEDS: SODIUM CHLORIDE 0.9% FLUSH 5 ML FLUSH IVF SCH (20:49)
[2017-04-16] MEDS: MORPHINE SULFATE 4 MG/ML INJ IV PUSH PRN ×5 (01:09→21:04)
[2017-04-16] MEDS: ACETAMINOPHEN/HYDROcodone 325 MG/10 MG TAB PO PRN ×6 (01:09→23:31)
[2017-04-16] MEDS: NS + KCL 20 MEQ INJ 1,000 ML IV SCH ×2 (04:16→15:01)
[2017-04-16] MEDS: BACITRACIN TOP OINT 15 GM TUBE TOPICAL SCH ×3 (05:35→21:06)
[2017-04-16 05:45] LABS: AUTOMATED NEUTROPHIL # 9.3 TH/MM3 (1.8-7.7); BASOPHIL % 0.3 % (0.0-2.0); HEMO FLAGS DIFF FINAL; LYMPH % 8.2 % (9.0-44.0); LYMPHOCYTE # 0.8 TH/MM3 (1.0-4.8); MEAN CELL VOLUME 90.1 FL (80.0-100.0); MEAN CORPUSCULAR HEMOGLOBIN 31.5 PG (27.0-34.0); MONO % 2.3 % (0.0-8.0); NEUT % 89.2 % (16.0-70.0); PLATELET COUNT 264 TH/MM3 (150-450); RED BLOOD COUNT 4.22 MIL/MM3 (4.50-5.90); WHITE BLOOD COUNT 10.4 TH/MM3 (4.0-11.0)
[2017-04-16 06:04] LABS: BICARBONATE 23.6 MEQ/L (21.0-32.0); POTASSIUM 4.1 MEQ/L (3.5-5.1)
[2017-04-16] MEDS: ceFAZolin 2 GM PREMIX 50 ML IV SCH ×3 (07:45→16:23)
[2017-04-16] MEDS: PANTOPRAZOLE SODIUM 40 MG VIAL IVP SCH (08:32)
[2017-04-16] MEDS ORDERED: *diphenhydrAMINE HCL 50 MG/ML VIAL PERIprocedural Use ONLY ONE (08:45)
[2017-04-16] MEDS: DOCUSATE SODIUM 100 MG CAP PO SCH ×2 (09:00→21:05)
[2017-04-16] MEDS: PANTOPRAZOLE SOD 40 MG DELAYED RELEASE TAB PO SCH (09:00)
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
[2017-04-16 12:34] VITALS: BP 111/72; PULSE 77; RESP 20; TEMP 98.1; O2SAT 90
[2017-04-16 13:06] VITALS: O2SAT 98
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
[2017-04-16 15:57] VITALS: BP 107/60; PULSE 77; RESP 20; TEMP 98.8; O2SAT 97
[2017-04-16] MEDS: levETIRAcetam INJ 500 MG in SODIUM CHLORIDE 0.9% INJ 100 ML IV SCH (18:05)
[2017-04-16] MEDS: SODIUM CHLOR 0.9% 1000 ML INJ 1,000 ML IV SCH (18:23)
[2017-04-16 20:00] VITALS: BP 124/60; PULSE 70; RESP 18; TEMP 98.5; O2SAT 98
[2017-04-16] MEDS: FAMOTIDINE 20 MG TAB PO SCH (21:05)
[2017-04-16] MEDS: SODIUM CHLORIDE 0.9% FLUSH 5 ML FLUSH IVF SCH (21:05)
[2017-04-17] VITALS: BP 106/66; PULSE 74; RESP 18; TEMP 98; O2SAT 97
[2017-04-17] MEDS: NS + KCL 20 MEQ INJ 1,000 ML IV SCH ×2 (00:56→10:48)
[2017-04-17] MEDS: MORPHINE SULFATE 4 MG/ML INJ IV PUSH PRN ×5 (00:56→17:29)
[2017-04-17] MEDS: diphenhydrAMINE HCL 25 MG CAP PO PRN ×2 (04:54→13:38)
[2017-04-17] MEDS: SODIUM CHLOR 0.9% 1000 ML INJ 1,000 ML IV SCH (04:55)
[2017-04-17] MEDS: BACITRACIN TOP OINT 15 GM TUBE TOPICAL SCH ×2 (04:55→14:00)
[2017-04-17] MEDS: levETIRAcetam INJ 500 MG in SODIUM CHLORIDE 0.9% INJ 100 ML IV SCH ×2 (04:55→18:00)
[2017-04-17 05:01] VITALS: BP 112/74; PULSE 74; RESP 16; TEMP 98.5; O2SAT 99
[2017-04-17] MEDS: ACETAMINOPHEN/HYDROcodone 325 MG/10 MG TAB PO PRN ×2 (06:31→16:02)
[2017-04-17 08:15] VITALS: BP 112/77; PULSE 68; RESP 20; TEMP 97.6; O2SAT 98
[2017-04-17] MEDS: PANTOPRAZOLE SODIUM 40 MG VIAL IVP SCH (09:00)
[2017-04-17] MEDS: SODIUM CHLORIDE 0.9% FLUSH 5 ML FLUSH IVF SCH (09:00)
[2017-04-17] MEDS: PANTOPRAZOLE SOD 40 MG DELAYED RELEASE TAB PO SCH (09:31)
[2017-04-17] MEDS: FAMOTIDINE 20 MG TAB PO SCH (09:31)
[2017-04-17] MEDS: DOCUSATE SODIUM 100 MG CAP PO SCH (09:31)
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
[2017-04-17 11:57] VITALS: BP 116/76; PULSE 80; RESP 20; TEMP 97.7; O2SAT 99
[2017-04-17] MEDS ORDERED: ALBUTEROL SULFATE 90 MCG/ACT HFA 8 GM INHALER INH PRN (12:15)
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
[2017-04-17] MEDS ORDERED: HYDR-3583 PO (14:13)
[2017-04-17] MEDS ORDERED: PANT40TA3 PO (14:13)
[2017-04-17] MEDS ORDERED: LEVE500 PO (14:14)
[2017-04-17] MEDS ORDERED: CEPH-460 PO (14:14)
[2017-04-17 16:25] VITALS: BP 128/60; PULSE 72; RESP 20; TEMP 98.1; O2SAT 99
[2017-04-17] MEDS ORDERED: ALBUTEROL SULFATE 90 MCG/ACT HFA 18 GM INHALER INH PRN (18:00)
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
[2017-04-17] MEDS ORDERED: MAGNESIUM CITRATE SOLN 300 ML BTL PO ONE (18:30)
== END 2017-04-17 18:30 | DRG 983 ==
LOC: NEPC 07:59 → NEDA 11:16 → EEVIPCON 11:16 → NEPHCDU 14:56 → N03B 04-15 18:32 → HPAC 04-15 20:00 → N05B 04-16 12:05 → OBSVTOIN 04-16 14:08
PROVIDERS: ADMIT Internal Medicine; ATTEND Internal Medicine
PROC: 00Q20ZZ Repair Dura Mater, Open Approach (ICD-10-PCS; principal; 2017-04-15 16:48)
DX: T84.328A Displacement of other bone devices, implants and grafts, initial encounter (principal); S06.890A Other specified intracranial injury without loss of consciousness, initial encounter; F41.9 Anxiety disorder, unspecified; J45.909 Unspecified asthma, uncomplicated; S12.000D Unspecified displaced fracture of first cervical vertebra, subsequent encounter for fracture with routine healing
CPT/HCPCS: 70450; 72125; 80048; 85025; 85610; 85730; 94150; C1713; C9113; G0378; J0131; J0690; J1170; J1200; J1580; J1953; J2270; J2405; J2710; J3010; J3370; J3480; J7030; J7050; J7120; L0150; L0172